=== PATIENT | male | born 1985 | race African-American/Black ===

== ENCOUNTER 2017-11-28 20:41 | Emergency (ER) | payer MEDICAID ==
[~2017-11-28] VITALS: Ht 170.2 cm; Wt 72.0 kg
[~2017-11-28 20:41] MED LIST: DICY1TAB26 PO; PHEN12.5 PO; PHEN12.5 PR; PREV30CA36 PO
[2017-11-28 20:59] VITALS: BP 147/84; PULSE 72; RESP 16; TEMP 97.8; O2SAT 99
[2017-11-28] MEDS: KETOROLAC TROMETHAMINE 60 MG/2 ML (IM) VIAL IM ONE ×3 (21:42→21:46)
--- NOTE | 2017-11-28 21:48 | PD ---
HPI . Foot injury Chief Complaint: Injury Time Seen by Provider: 21:35 Travel History International Travel<30 days: No Contact w/Intl Traveler<30days: No Traveled to known affect area: No History of Present Illness HPI Patient presents with chief complaint of left foot injury. He states he was playing football today when he inadvertently twisted his foot. He comes in complaining with pain in the lateral left foot. Pain is exacerbated by walking on it. Pain is rated 9/10. He states he took Tylenol prior to presentation with no relief of the pain. [facility] Past Medical History Medical History: Denies Significant Hx Diminished Hearing: No Musculoskeletal: Yes (FRACTURED LEFT FOOT) Influenza Vaccination: No Past Surgical History Surgical History: No Previous Surgery Social History Alcohol Use: Yes (OCCAS.) Tobacco Use: No Substance Use: No Allergies-Medications (Allergen,Severity, Reaction): Coded Allergies: codeine (Unverified Allergy, Severe, 11/28/17) "DENIES" GI UPSET N/V Reported Meds & Prescriptions Reported Meds & Active Scripts Active Review of Systems Except as stated in HPI: all other systems reviewed are Neg Physical Exam Narrative GENERAL: Awake and alert and in no acute distress. SKIN: Warm and dry. HEAD: Normocephalic/atraumatic. EYES: Pupils are equal. Extraocular movements are intact. NECK: Normal range of motion. RESPIRATORY: Nonlabored respirations. MUSCULOSKELETAL: Bruising and tenderness in the lateral left foot. No deformity. Distally neurovascularly intact. NEUROLOGICAL: Nonfocal. PSYCHIATRIC: Appropriate mood and affect. Data Data Last Documented VS Vital Signs Date Time Temp Pulse Resp B/P (MAP) Pulse Ox O2 Delivery O2 Flow Rate FiO2 11/28/17 20:59 97.8 72 16 147/84 (105) 99 Orders Orders Foot, Complete ([id number]) (11/28/17 21:35) Ketorolac Inj (Toradol Inj) (11/28/17 21:45) MDM Medical Decision Making Medical Screen Exam Complete: Yes Emergency Medical Condition: Yes Differential Diagnosis Differential diagnosis of extremity trauma includes but is not limited to fracture, sprain or strain, dislocation, contusion Narrative Course This patient presents with a left foot injury. He is tender over the left anterior talofibular ligament. X-ray is pending. X-ray>>Four view examination of the left knee demonstrates no evidence of fracture or dislocation. Bony mineralization is normal. The articular surfaces are intact. No joint effusion. The suprapatellar soft tissues have a normal configuration. The comparison view is unremarkable. Will be treated with a Stevens dressing, cast shoe and crutches. I will refer him to the [facility] for follow-up. Diagnosis Primary Impression: Nondisplaced fracture of fifth left metatarsal bone Qualified Codes: S92.355A - Nondisplaced fracture of fifth metatarsal bone, left foot, initial encounter for closed fracture Referrals: [facility] Patient Instructions: Foot Fracture in Adults (DC), General Instructions Med/Other Pt SpecificInfo: Prescription(s) given Scripts Hydrocodone-Acetaminophen ([place]) 5 Mg-325 Mg Tab 1 TAB PO Q4H Y for PAIN, #12 TAB 0 Refills Prov: Kaela Cody MD 11/28/17 Disposition: 01 DISCHARGE HOME Condition: Stable Kaela Cody MD Nov 28, 2017 21:48
--- NOTE | 2017-11-28 22:16 | RADRPT ---
EXAM DATE/TIME: 11/28/2017 21:55 [facility] COMPARISON: No previous studies available for comparison. INDICATIONS : Trauma to left foot. MEDICAL HISTORY : Previous broken bones in left foot. SURGICAL HISTORY : None. ENCOUNTER: Initial ACUITY: 1 day PAIN SCORE: 8/10 LOCATION: Left foot, lateral FINDINGS: 3 views of the left foot demonstrate a transverse minimally displaced fracture of the proximal fifth metatarsal metaphysis approximately 2.6 cm from the proximal epiphysis. There is adjacent soft tissue swelling. No other fracture or dislocation is identified. Lisfranc joint appears intact. No radiopaq ue foreign body is identified. CONCLUSION: There is a minimally displaced oblique fracture of the proximal fifth metatarsal metaphysis. Jd Ritchie MD on November 28, 2017 at 22:13 Board Certified Radiologist. This report was verified electronically.
[2017-11-28] MEDS ORDERED: NORC5TAB PO (22:23)
[2017-11-28] MEDS ORDERED: ACETAMINOPHEN/HYDROcodone 325 MG/5 MG TAB PO ONE (22:30)
== END 2017-11-28 22:35 | disposition home or self-care (01) ==
LOC: PHEFT 20:41
DX: S92.355A Nondisplaced fracture of fifth metatarsal bone, left foot, initial encounter for closed fracture (principal); Y93.61 Activity, american tackle football; X50.1XXA Overexertion from prolonged static or awkward postures, initial encounter; Z88.5 Allergy status to narcotic agent
CPT/HCPCS: 73630; 96372; 99283; E0113; J1885; L3260